=== PATIENT | male | born 1995 ===

== ENCOUNTER 2023-11-23 05:20 | Day surgery (SDC) | payer OTHER ==
[2023-11-15 07:51] LABS: HEMATOCRIT 41.4 % (39.0-48.0); HEMOGLOBIN 14.2 g/dL (13-16.00); MEAN CELL VOLUME 84.3 fL (80.0-100.00); MEAN CORPUSCULAR HEMOGLOBIN 28.8 pg (27.00-32.0); MEAN CORPUSCULAR HGB CONC 34.2 g/dl (32.0-36.0); PH,URINE 5.5 (5.0-8.0); PLATELET COUNT 269 K/uL (150-450); RED BLOOD COUNT 4.92 M/uL (4.00-6.00); RED CELL DISTRIBUTION WIDTH 13.6 % (11.5-14.5); URINE APPEARANCE Clear; URINE BILIRRUBIN Negative (NEGATIVE); URINE BLOOD Moderate; URINE COLOR Dark Yellow; URINE EPITHELIAL CELLS 4.3 uL (0.0-38.8); URINE GLUCOSE Negative (NEGATIVE); URINE LEUKOCYTE Negative; URINE NITRATE Negative; URINE PROTEIN Trace (NEGATIVE); URINE RBC 420.6 uL (0.0-20.8); URINE WBC 4.1 uL (0.0-23.2)
[2023-11-15 08:10] LABS: INR 1.05; PARTIAL THROMBOPLASTIN TIME 27.5 SECONDS (22.0-34.0)
[2023-11-15 08:20] LABS: ALBUMIN 4.6 gm/dL (3.4-5.0); BILIRUBIN TOTAL 0.36 mg/dL (0.3-1.2); CALCIUM 9.4 mg/dL (8.5-10.1); CREATININE SERUM 0.94 mg/dL (0.70-1.30); GFR 95.56; GLOBULINA 2.7 G/DL (2.4-3.5); POTASSIUM 4.24 mEq/L (3.5-5.1); TOTAL PROTEIN 7.3 gm/dL (6.4-8.2)
[2023-11-23] MEDS ORDERED: SUGAMMADEX SODIUM 200 MG/2 ML VIAL IV SCH (07:45)
[2023-11-23] MEDS ORDERED: CEFAZOLIN SODIUM 1,000 MG VIAL IV SCH (07:45)
== END 2023-11-23 10:45 | disposition home or self-care (01) ==
LOC: CIR.AMB 05:20
PROVIDERS: ATTEND Surgery
DX: K43.6 Other and unspecified ventral hernia with obstruction, without gangrene (principal)
CPT/HCPCS: 49594; C1781